=== PATIENT | male | born 2000 | race Caucasian/White ===

== ENCOUNTER 2019-04-13 12:29 | Emergency (ER) | payer OTHER ==
--- NOTE | 2019-04-13 15:34 | ER ---
Nurse's Notes [facility] Name: Juan A Beaulieu Age: 18 yrs Sex: Male : 2000 Arrival Date: 04/13/2019 Time: 12:31 Bed 20 Private MD: Diagnosis: Acute pharyngitis Presentation: 04/13 13:18 Presenting complaint: Patient states: Sore throat swollen when I woke up this morning, ca1 but I have been feeling sick for 2 days. Cough and congestion, nausea and diarrhea reported. Transition of care: patient was not received from another setting of care. Onset of symptoms was April 13, 2019. Risk Assessment: Do you want to hurt yourself or someone else? Patient reports no desire to harm self or others. Initial Sepsis Screen: Does the patient meet any 2 criteria? No. Patient's initial sepsis screen is negative. Does the patient have a suspected source of infection? No. Patient's initial sepsis screen is negative. Care prior to arrival: None. 13:18 Method Of Arrival: Ambulatory ca1 13:18 Acuity: MISSY 4 ca1 Triage Assessment: 13:20 General: Appears in no apparent distress. comfortable, Behavior is cooperative, bp appropriate for age, anxious. Pain: Complains of pain in THROAT. EENT: Reports pain when swallowing. Neuro: No deficits noted. Cardiovascular: No deficits noted. Respiratory: No deficits noted. GI: No signs and/or symptoms were reported involving the gastrointestinal system. : No signs and/or symptoms were reported regarding the genitourinary system. Derm: No deficits noted. Musculoskeletal: No deficits noted. Historical: - Allergies: 13:20 No Known Allergies; ca1 - Home Meds: 13:20 None [Active]; ca1 - PMHx: 13:20 None; ca1 - PSHx: 13:20 Appendectomy; ca1 - Immunization history:: Adult Immunizations not up to date, Flu vaccine is not up to date. - Coronavirus screen:: The patient has NOT traveled to [place] in the past 14 days. The patient has NOT had contact with known/suspected case of Coronavirus?. - Social history:: Smoking status: Patient reports the use of cigarette tobacco products, smokes one-half pack cigarettes per day. - Ebola Screening: : Patient negative for fever greater than or equal to 101.5 degrees Fahrenheit, and additional compatible Ebola Virus Disease symptoms Patient denies exposure to infectious person Patient denies travel to an Ebola-affected area in the 21 days before illness onset No symptoms or risks identified at this time. Screenin:17 Abuse screen: Denies threats or abuse. Denies injuries from another. Nutritional bp screening: No deficits noted. Tuberculosis screening: No symptoms or risk factors identified. Fall Risk None identified. Assessment: 13:20 General: SEE TRIAGE NOTE. bp 14:16 Respiratory: Airway is patent Respiratory effort is even, unlabored, Breath sounds are bp clear bilaterally. EENT: Throat is reddened bilaterally. 15:06 Reassessment: PT D/C HOME AMBULATORY, DX WITH ACUTE PHARYNGITIS. bp Vital Signs: 13:20 BP 143 / 93; Pulse 75; Resp 16 S; Temp 97.7(O); Pulse Ox 98% on R/A; Weight 145.15 kg ca1 (R); Height 6 ft. 1 in. (185.42 cm) (R); Pain 3/10; 14:16 BP 123 / 76; Pulse 86; Resp 17; Pulse Ox 97% ; bp 15:06 BP 110 / 67; Pulse 67; Resp 17; Temp 98; Pulse Ox 98% ; bp 13:20 Body Mass Index 42.22 (145.15 kg, 185.42 cm) ca1 ED Course: 12:31 Patient arrived in ED. as 12:40 Micaela Woods FNP-C [facility]. kb 12:40 Vikas Martin MD is Attending Physician. kb 13:19 Triage completed. ca1 13:20 Arm band placed on right wrist. ca1 13:22 Kimani Cabrera, TATUM is Primary Nurse. bp 14:17 Patient has correct armband on for positive identification. Bed in low position. Call bp light in reach. Side rails up X2. 15:06 No provider procedures requiring assistance completed. Patient did not have IV access bp during this emergency room visit. Administered Medications: No medications were administered Outcome: 15:00 Discharge ordered by . kb 15:06 Discharged to home ambulatory. bp 15:06 Condition: stable 15:06 Discharge instructions given to patient, Instructed on discharge instructions, follow up and referral plans. Demonstrated understanding of instructions, follow-up care. 15:08 Patient left the ED. bp Signatures: Micaela Woods FNP-C FNP-Kristan Quiroz as Kimani Cabrera, RN RN bp Elif Kent RN RN ca1 Corrections: (The following items were deleted from the chart) 14:16 14:15 General: SEE TRIAGE NOTE. bp bp
--- NOTE | 2019-04-13 15:35 | EDPHYS ---
Physician Documentation [facility] Name: Juan A Beaulieu Age: 18 yrs Sex: Male : 2000 Arrival Date: 04/13/2019 Time: 12:31 Bed 20 Private MD: ED Physician Vikas Martin HPI: 04/13 16:17 This 18 yrs old Male presents to ER via Ambulatory with complaints of Sore kb Throat. 16:17 The patient presents with sore throat. The patient describes throat pain as constant. kb Onset: The symptoms/episode began/occurred 3 day(s) ago. Severity of symptoms: At their worst the symptoms were moderate, in the emergency department the symptoms are unchanged. Modifying factors: The symptoms are alleviated by nothing, the symptoms are aggravated by nothing, Patient's oral intake status: good Denies contact with similarly ill indivduals. Associated signs and symptoms: Pertinent positives: Sore throat Pertinent negatives fever. The patient has not experienced similar symptoms in the past. The patient has not recently seen a physician. Historical: - Allergies: 13:20 No Known Allergies; ca1 - Home Meds: 13:20 None [Active]; ca1 - PMHx: 13:20 None; ca1 - PSHx: 13:20 Appendectomy; ca1 - Immunization history:: Adult Immunizations not up to date, Flu vaccine is not up to date. - Coronavirus screen:: The patient has NOT traveled to [place] in the past 14 days. The patient has NOT had contact with known/suspected case of Coronavirus?. - Social history:: Smoking status: Patient reports the use of cigarette tobacco products, smokes one-half pack cigarettes per day. - Ebola Screening: : Patient negative for fever greater than or equal to 101.5 degrees Fahrenheit, and additional compatible Ebola Virus Disease symptoms Patient denies exposure to infectious person Patient denies travel to an Ebola-affected area in the 21 days before illness onset No symptoms or risks identified at this time. ROS: 16:15 Constitutional: Negative for fever, chills, and weight loss, Neck: Negative for injury, kb pain, and swelling, Cardiovascular: Negative for chest pain, palpitations, and edema, Respiratory: Negative for shortness of breath, cough, wheezing, and pleuritic chest pain, Abdomen/GI: Negative for abdominal pain, nausea, vomiting, diarrhea, and constipation, Back: Negative for injury and pain, MS/Extremity: Negative for injury and deformity, Skin: Negative for injury, rash, and discoloration, Neuro: Negative for headache, weakness, numbness, tingling, and seizure. 16:15 ENT: Positive for sore throat. Exam: 16:15 Constitutional: This is a well developed, well nourished patient who is awake, alert, kb and in no acute distress. Head/Face: Normocephalic, atraumatic. ENT: Nares patent. No nasal discharge, no septal abnormalities noted. Tympanic membranes are normal and external auditory canals are clear. Oropharynx with no redness, swelling, or masses, exudates, or evidence of obstruction, uvula midline. Mucous membranes moist. Neck: Trachea midline, no thyromegaly or masses palpated, and no cervical lymphadenopathy. Supple, full range of motion without nuchal rigidity, or vertebral point tenderness. No Meningismus. Chest/axilla: Normal chest wall appearance and motion. Nontender with no deformity. No lesions are appreciated. Cardiovascular: Regular rate and rhythm with a normal S1 and S2. No gallops, murmurs, or rubs. Normal PMI, no JVD. No pulse deficits. Respiratory: Lungs have equal breath sounds bilaterally, clear to auscultation and percussion. No rales, rhonchi or wheezes noted. No increased work of breathing, no retractions or nasal flaring. Abdomen/GI: Soft, non-tender, with normal bowel sounds. No distension or tympany. No guarding or rebound. No evidence of tenderness throughout. Skin: Warm, dry with normal turgor. Normal color with no rashes, no lesions, and no evidence of cellulitis. MS/ Extremity: Pulses equal, no cyanosis. Neurovascular intact. Full, normal range of motion. Neuro: Awake and alert, GCS 15, oriented to person, place, time, and situation. Cranial nerves II-XII grossly intact. Motor strength 5/5 in all extremities. Sensory grossly intact. Cerebellar exam normal. Normal gait. Vital Signs: 13:20 BP 143 / 93; Pulse 75; Resp 16 S; Temp 97.7(O); Pulse Ox 98% on R/A; Weight 145.15 kg ca1 (R); Height 6 ft. 1 in. (185.42 cm) (R); Pain 3/10; 14:16 BP 123 / 76; Pulse 86; Resp 17; Pulse Ox 97% ; bp 15:06 BP 110 / 67; Pulse 67; Resp 17; Temp 98; Pulse Ox 98% ; bp 13:20 Body Mass Index 42.22 (145.15 kg, 185.42 cm) ca1 MDM: 13:22 Patient medically screened. kb 16:15 Data reviewed: vital signs, nurses notes. Data interpreted: Pulse oximetry: on room air kb is 98 %. Interpretation: normal. Counseling: I had a detailed discussion with the patient and/or guardian regarding: the historical points, exam findings, and any diagnostic results supporting the discharge/admit diagnosis, lab results, the need for outpatient follow up, a family practitioner, to return to the emergency department if symptoms worsen or persist or if there are any questions or concerns that arise at home. 04/13 13:23 Order name: Flu kb 04/13 13:23 Order name: Strep kb 04/13 14:03 Order name: Group A Streptococcus Rapid Sc; Complete Time: 14:04 EDMS 04/13 14:47 Order name: Influenza Screen (A ; Complete Time: 14:48 EDMS Administered Medications: No medications were administered Disposition: 18:57 Co-signature as Attending Physician, Vikas Martin MD I agree with the assessment and kdr plan of care. Disposition: 04/13/19 15:00 Discharged to Home. Impression: Acute pharyngitis. - Condition is Stable. - Discharge Instructions: Pharyngitis, [id number], Sore Throat, [id number]. - Medication Reconciliation Form, Thank You Letter, Antibiotic Education, Prescription Opioid Use form. - Follow up: Emergency Department; When: As needed; Reason: Worsening of condition. Follow up: Private Physician; When: 2 - 3 days; Reason: Recheck today's complaints, Continuance of care, Re-evaluation by your physician. Signatures: Dispatcher [employer] EDND Micaela Woods, SWAPNA-C Vikas Zavala MD MD kdr Peltier, Brian, RN RN bp AcElif pandey RN RN ca1 Corrections: (The following items were deleted from the chart) 15:08 15:00 04/13/2019 15:00 Discharged to Home. Impression: Acute pharyngitis. Condition is bp Stable. Forms are Medication Reconciliation Form, Thank You Letter, Antibiotic Education, Prescription Opioid Use. Follow up: Emergency Department; When: As needed; Reason: Worsening of condition. Follow up: Private Physician; When: 2 - 3 days; Reason: Recheck today's complaints, Continuance of care, Re-evaluation by your physician. kb
[2019-04-14 09:36] VITALS: BP 110/67; TEMP 98; O2SAT 98
== END 2019-04-13 15:08 | disposition home or self-care (01) ==
LOC: ER 12:29
DX: J02.9 Acute pharyngitis, unspecified (principal); F17.210 Nicotine dependence, cigarettes, uncomplicated
CPT/HCPCS: 87070; 87081; 87804; 99281

== ENCOUNTER 2020-08-16 18:03 | Emergency (ER) | payer SELFPAY ==
--- NOTE | 2020-08-16 19:31 | ER ---
Nurse's Notes [facility] Name: Juan A Beaulieu Age: 19 yrs Sex: Male : 2000 Arrival Date: 08/16/2020 Time: 18:06 Bed Waiting Private MD: Diagnosis: Allergic contact dermatitis Presentation: 08/16 18:13 Chief complaint: Patient states: Awoke with rash and itching on Wednesday. Rash to R arm ll1 and R leg. No new foods/medications. Coronavirus screen: Client denies travel out of the [place] in the last 14 days. At this time, the client does not indicate any symptoms associated with coronavirus-19. Ebola Screen: Patient denies travel to an Ebola-affected area in the 21 days before illness onset. Initial Sepsis Screen: Does the patient meet any 2 criteria? No. Patient's initial sepsis screen is negative. Does the patient have a suspected source of infection? Yes: Skin breakdown/wound. Risk Assessment: Do you want to hurt yourself or someone else? Patient reports no desire to harm self or others. Onset of symptoms was August 14, 2020. 18:13 Method Of Arrival: Ambulatory ll1 18:13 Acuity: MISSY 4 ll1 Historical: - Allergies: 18:15 No Known Allergies; ll1 - PMHx: 18:15 None; ll1 - PSHx: 18:15 Appendectomy; ll1 - Immunization history:: Client reports having NOT received the Covid vaccine. Flu vaccine is not up to date. - Social history:: Smoking status: Patient reports the use of cigarette tobacco products, smokes one pack cigarettes per day. Screenin:26 Abuse screen: Denies threats or abuse. Denies injuries from another. Nutritional ca1 screening: No deficits noted. Tuberculosis screening: No symptoms or risk factors identified. Fall Risk None identified. Assessment: 19:26 General: Appears in no apparent distress. comfortable, Behavior is calm, cooperative, ca1 appropriate for age. Pain: Denies pain. Neuro: Level of Consciousness is awake, alert, obeys commands, Oriented to person, place, time, situation. Derm: Skin is intact, is healthy with good turgor, Skin is pink, warm \T\ dry. Rash noted that is itchy, papular, red, raised, on right arm and right leg. Musculoskeletal: Circulation, motion, and sensation intact. Capillary refill < 3 seconds. Vital Signs: 18:13 Pulse 63; Resp 17; Temp 97.6; Pulse Ox 99% ; Weight 122.47 kg; Height 6 ft. 1 in. ll1 (185.42 cm); Pain 0/10; 19:25 BP 126 / 86; ca1 18:13 Body Mass Index 35.62 (122.47 kg, 185.42 cm) ll1 ED Course: 18:06 Patient arrived in ED. bp1 18:15 Triage completed. ll1 18:15 Arm band placed on. ll1 19:25 Elif Kent, RN is Primary Nurse. ca1 19:26 Patient has correct armband on for positive identification. ca1 19:27 Herve Toro PA is PHCP. jr8 19:27 Yanick Pandya MD is Attending Physician. jr8 19:27 No provider procedures requiring assistance completed. Patient did not have IV access ca1 during this emergency room visit. Administered Medications: 19:29 Drug: predniSONE 60 mg Route: PO; ca1 Outcome: 19:30 Discharge ordered by . jr8 19:35 Discharged to home ambulatory. ca1 19:35 Discharge instructions given to patient, Instructed on discharge instructions, follow up and referral plans. medication usage, Demonstrated understanding of instructions, follow-up care, medications, Prescriptions given X 1. 19:35 Condition: stable ca1 19:35 Patient left the ED. ca1 Signatures: Herve Toro PA PA jrElif Gonzales RN RN ca1 Jesse Osullivan RN RN ll1 Nereyda Rondon bp1
--- NOTE | 2020-08-16 19:31 | EDPHYS ---
Physician Documentation [facility] Name: Juan A Beaulieu Age: 19 yrs Sex: Male : 2000 Arrival Date: 08/16/2020 Time: 18:06 Bed Waiting Private MD: ED Physician Yanick Pandya HPI: 08/16 19:28 This 19 yrs old Male presents to ER via Ambulatory with complaints of Rash. jr8 19:28 The patient's rash thought to be caused by Dermatitis. The rash is located on the right jr8 arm and right leg. The rash can be described as erythematous, papular, raised. Onset: The symptoms/episode began/occurred acutely. Associated signs and symptoms: Pertinent positives: itching. Severity of symptoms: At their worst the symptoms were moderate in the emergency department the symptoms are unchanged. The patient has not experienced similar symptoms in the past. The patient has not recently seen a physician. Stated that [place] in [place] but did not recall brushing up on anything. Woke up with rash to right inner forearm and leg. Historical: - Allergies: 18:15 No Known Allergies; ll1 - PMHx: 18:15 None; ll1 - PSHx: 18:15 Appendectomy; ll1 - Immunization history:: Client reports having NOT received the Covid vaccine. Flu vaccine is not up to date. - Social history:: Smoking status: Patient reports the use of cigarette tobacco products, smokes one pack cigarettes per day. ROS: 19:28 Eyes: Negative for injury, pain, redness, and discharge, ENT: Negative for injury, jr8 pain, and discharge, Neck: Negative for injury, pain, and swelling, Cardiovascular: Negative for chest pain, palpitations, and edema, Respiratory: Negative for shortness of breath, cough, wheezing, and pleuritic chest pain, Abdomen/GI: Negative for abdominal pain, nausea, vomiting, diarrhea, and constipation, Back: Negative for injury and pain, MS/Extremity: Negative for injury and deformity, Neuro: Negative for headache, weakness, numbness, tingling, and seizure. 19:28 Skin: Positive for rash. Exam: 19:28 Constitutional: This is a well developed, well nourished patient who is awake, alert, jr8 and in no acute distress. Cardiovascular: Regular rate and rhythm with a normal S1 and S2. No gallops, murmurs, or rubs. Normal PMI, no JVD. No pulse deficits. Respiratory: Lungs have equal breath sounds bilaterally, clear to auscultation and percussion. No rales, rhonchi or wheezes noted. No increased work of breathing, no retractions or nasal flaring. MS/ Extremity: Pulses equal, no cyanosis. Neurovascular intact. Full, normal range of motion. Neuro: Awake and alert, GCS 15, oriented to person, place, time, and situation. Cranial nerves II-XII grossly intact. Motor strength 5/5 in all extremities. Sensory grossly intact. Cerebellar exam normal. Normal gait. 19:28 Skin: rash a moderate rash is noted, rash can be described as erythematous, papular, contact dermatitis, on the right arm and right leg. Vital Signs: 18:13 Pulse 63; Resp 17; Temp 97.6; Pulse Ox 99% ; Weight 122.47 kg; Height 6 ft. 1 in. ll1 (185.42 cm); Pain 0/10; 19:25 BP 126 / 86; ca1 18:13 Body Mass Index 35.62 (122.47 kg, 185.42 cm) ll1 MDM: 19:28 Patient medically screened. jr8 19:28 Data reviewed: vital signs, nurses notes, and as a result, I will discharge patient. jr8 Data interpreted: Pulse oximetry: on room air is 99 %. Interpretation: normal. Counseling: I had a detailed discussion with the patient and/or guardian regarding: the historical points, exam findings, and any diagnostic results supporting the discharge/admit diagnosis, the need for outpatient follow up, a family practitioner, to return to the emergency department if symptoms worsen or persist or if there are any questions or concerns that arise at home. Administered Medications: 19:29 Drug: predniSONE 60 mg Route: PO; ca1 Disposition: 08/17 06:36 Co-signature as Attending Physician, Yanick Pandya MD. mh7 Disposition: 08/16/20 19:30 Discharged to Home. Impression: Allergic contact dermatitis. - Condition is Stable. - Discharge Instructions: Contact Dermatitis. - Prescriptions for Prednisone 20 mg Oral Tablet - take 3 tablets by ORAL route once daily for 3 days then two tabs once daily for 3 days then one tab daily for 4 days; 19 tablet. - Medication Reconciliation Form, Thank You Letter, Antibiotic Education, Prescription Opioid Use form. - Follow up: Private Physician; When: 5 - 6 days; Reason: Recheck today's complaints, Continuance of care, Re-evaluation by your physician. - Problem is new. - Symptoms are unchanged. Signatures: Herve Toro PA PA jr8 Elif Kent RN RN ca1 Jesse Osullivan RN RN ll1 Yanick Pandya MD MD [email or web address] Corrections: (The following items were deleted from the chart) 08/16 19:35 19:30 08/16/2020 19:30 Discharged to Home. Impression: Allergic contact dermatitis. ca1 Condition is Stable. Forms are Medication Reconciliation Form, Thank You Letter, Antibiotic Education, Prescription Opioid Use. Follow up: Private Physician; When: 5 - 6 days; Reason: Recheck today's complaints, Continuance of care, Re-evaluation by your physician. Problem is new. Symptoms are unchanged. jr8
[2020-08-16] MEDS ORDERED: predniSONE 20 MG TAB ONE (19:49)
[2020-08-16 19:52] VITALS: TEMP 97.6; O2SAT 99
[2020-08-16 19:53] VITALS: BP 126/86
== END 2020-08-16 19:35 | disposition home or self-care (01) ==
LOC: ER 18:03
DX: L23.9 Allergic contact dermatitis, unspecified cause (principal); F17.210 Nicotine dependence, cigarettes, uncomplicated
CPT/HCPCS: J7512

== ENCOUNTER 2022-07-29 18:01 | Emergency (ER) | payer OTHER ==
[2022-07-29 21:41] LABS: Protime INR 1.13
[2022-07-29 21:46] LABS: Absolute Lymphocytes (CBC) 3.5 K/uL (0.7-4.9); Hematocrit 40.8 % (39.6-49.0); Lymphocytes % 28.7 % (15.3-44.8); MPV 7.5 fL (7.6-11.3); RBC Red Blood Cell Count 4.49 M/uL (4.33-5.43)
--- NOTE | 2022-07-29 21:54 | RAD REPORT ---
[facility] DES[facility]11 pm CLINICAL HISTORY: syncope COMPARISON: CHEST SINGLE VIEW dated 05/29/2009 TECHNIQUE: Portable AP view of the chest. FINDINGS: The lungs are clear. No pneumothorax or effusion. The cardiomediastinal contours are unre markable. IMPRESSION: No acute cardiopulmonary process.
--- NOTE | 2022-07-29 22:13 | RAD REPORT ---
EXAM DESCRIPTION: CT - Head Brain Wo Cont - 07/29/2022 8:51 pm CLINICAL HISTORY: Dizziness;Syncope COMPARISON: No comparisons TECHNIQUE: Noncontrast head CT images ad were obtained without IV contrast. Multiplanar reformats we re generated and reviewed. All CT scans are performed using dose optimization technique as appropriate and may include automated exposure control or mA/KV adjustment according to patient size. FINDINGS: No intracranial hemorrhage, mass, or edema. Changes of empty sella noted, nonspecific. Normal ventricular caliber for age. Jama-white matter differentiation is preserved, without evidence of acute infarct. No abnormal extra- axial fluid collections. Mastoid air cells and visualized portions of the paranasal sinuses are clear. No acute bony findings. IMPRESSION: No evidence of an acute intracranial process. Changes of empty sella are noted, nonspecific. This could relate to longstanding increase of intracra nial pressure in the appropriate clinical setting. Ventricular size is however normal.
[2022-07-29 22:29] LABS: Magnesium 2.1 mg/dL (1.6-2.4); Potassium 3.1 mEq/L (3.5-5.1); Troponin High Sensitivity 6.8 pg/mL (<58.9)
[2022-07-29] MEDS ORDERED: NA CHLORIDE 0.9% 1,000 ML ONE (22:34)
[2022-07-29] MEDS ORDERED: POTASSIUM 25 MEQ EFFERV TAB ONE (22:55)
--- NOTE | 2022-07-29 23:05 | EDPHYS ---
Physician Documentation [facility] Name: Juan A Beaulieu Age: 21 yrs Sex: Male : 2000 Arrival Date: 07/29/2022 Time: 18:01 Bed 2 Private MD: ED Physician Paul Schultz HPI: 07/29 18:20 This 21 yrs old Male presents to ER via EMS with complaints of Syncope. cp 18:20 The patient has experienced syncope, lost consciousness. cp 18:20 Onset: The symptoms/episode began/occurred today. cp 18:20 Duration: This was a single episode. cp Historical: - Allergies: 18:04 No Known Allergies; iw - Home Meds: 18:04 None [Active]; iw - PMHx: 18:04 None; iw - Immunization history:: Adult Immunizations up to date. - Social history:: Smoking status: Patient reports the use of cigarette tobacco products, smokes one pack cigarettes per day. ROS: 18:25 Constitutional: Negative for body aches, chills, fever, poor PO intake. cp 18:25 Eyes: Negative for injury, pain, redness, and discharge. cp Exam: 20:40 ECG was reviewed by the Attending Physician. cp 20:44 Constitutional: The patient appears in no acute distress, alert, awake, cp non-diaphoretic, non-toxic, well developed, well nourished. 20:44 Head/Face: Normocephalic, atraumatic. cp 20:44 Eyes: Periorbital structures: appear normal, Pupils: equal, round, and reactive to light and accomodation, Extraocular movements: intact throughout, Conjunctiva: normal, no exudate, no injection, Lids and lashes: appear normal, bilaterally. 20:44 ENT: External ear(s): are unremarkable, Nose: is normal, Mouth: Lips: moist, Oral mucosa: pink and intact, moist. 20:44 Chest/axilla: Inspection: normal. 20:44 Cardiovascular: Rate: normal, Rhythm: regular. 20:44 Respiratory: the patient does not display signs of respiratory distress, Respirations: normal, no use of accessory muscles, labored breathing, is not present, Breath sounds: are clear throughout, no decreased breath sounds, no stridor, no wheezing. 20:44 Abdomen/GI: Inspection: abdomen appears normal, Palpation: abdomen is soft and non-tender, in all quadrants. 20:44 Neuro: Orientation: to person, place \T\ time. Mentation: is normal, Cerebellar function: is grossly normal, Motor: moves all fours, strength is normal, Sensation: is normal. Vital Signs: 18:05 Pulse Ox 100% ; iw 18:15 BP 123 / 81; Pulse 72; Resp 17; Temp 98.4(O); Weight 97.98 kg; Height 6 ft. 2 in. ; mb9 Pain 8/10; 20:38 BP 136 / 97; Pulse 63; Resp 19; Pulse Ox 100% on R/A; aa9 21:43 BP 128 / 86 Supine; Pulse 85; Resp 18; Pulse Ox 98% on R/A; rv 21:59 BP 138 / 89 Sitting; Pulse 66; Resp 16; Pulse Ox 99% on R/A; rv 21:59 BP 141 / 89 Standing; Pulse 89; Resp 18; Pulse Ox 99% on R/A; rv 23:00 BP 131 / 84; Pulse 70; Resp 17 S; Pulse Ox 99% on R/A; aa9 23:10 Temp 98.6(O); aa9 18:15 Body Mass Index 27.73 (97.98 kg, 187.96 cm) mb9 18:15 Pain Scale: Adult mb9 MDM: 18:17 Patient medically screened. 23:04 Data reviewed: vital signs, nurses notes, lab test result(s), EKG, radiologic studies. cp 23:04 Consideration of Admission/Observation Escalation of care including cp admission/observation considered. 07/29 18:19 Order name: Basic Metabolic Panel; Complete Time: 22:43 07/29 22:43 Interpretation: Normal except: K 3.1; CL 109. 07/29 18:19 Order name: CBC with Diff; Complete Time: 22:05 07/29 22:06 Interpretation: Normal except: WBC 12.10; MPV 7.5; EOSINOPHIL % 4.5. 07/29 18:19 Order name: Magnesium; Complete Time: 22:43 07/29 18:19 Order name: PT-INR; Complete Time: 22:05 07/29 22:06 Interpretation: Reviewed. 07/29 18:19 Order name: Troponin HS; Complete Time: 22:43 07/29 22:43 Interpretation: Reviewed. cp 07/29 22:11 Order name: Creatine Phosphokinase; Complete Time: 22:43 EDMS 07/29 18:19 Order name: XRAY Chest (1 view); Complete Time: 22:05 cp 07/29 22:06 Interpretation: Report reviewed. cp 07/29 20:03 Order name: CT Head Brain wo Cont; Complete Time: 22:16 cp 07/29 22:16 Interpretation: Report reviewed. cp 07/29 18:19 Order name: EKG; Complete Time: 18:20 cp 07/29 18:17 Order name: Orthostatics; Complete Time: 22:03 cp 07/29 18:19 Order name: Cardiac monitoring; Complete Time: 20:38 cp 07/29 18:19 Order name: EKG - Nurse/Tech; Complete Time: 20:38 cp 07/29 18:19 Order name: IV Saline Lock; Complete Time: 20:38 cp 07/29 18:19 Order name: Labs collected and sent; Complete Time: 21:06 cp 07/29 18:19 Order name: O2 Per Protocol; Complete Time: 20:38 cp 07/29 18:19 Order name: O2 Sat Monitoring; Complete Time: 20:38 cp EC:40 Rate is 61 beats/min. Rhythm is regular. TX interval is normal. QRS interval is normal. cp QT interval is normal. T waves are Inverted in lead aVR. Interpreted by me. Reviewed by me. Administered Medications: 22:27 Drug: NS 0.9% IV 1000 ml Route: IV; Rate: 1 bolus; Site: right antecubital; rv 23:15 Follow up: IV Status: Completed infusion; IV Intake: 1000ml rv 22:49 Drug: Potassium PO Effervescent Tablet 50 mEq Route: PO; rv 23:15 Follow up: Response: No adverse reaction rv Point of Care Testing: Blood Glucose: 18:05 Blood Glucose: 98 mg/dL; iw Ranges: Critical Glucose Levels:Adult <50 mg/dl or >400 mg/dl <40 mg/dl or >180 mg/dl Disposition Summary: 07/29/22 23:04 Discharge Ordered Location: Home cp Problem: new cp Symptoms: have improved cp Condition: Stable cp Diagnosis - Heat syncope cp - Hypokalemia cp Followup: cp - With: Private Physician - When: 2 - 3 days - Reason: Recheck today's complaints Discharge Instructions: - Discharge Summary Sheet cp - Potassium Content of Foods cp - Syncope cp - Heat Exhaustion cp - Hypokalemia cp Forms: - Medication Reconciliation Form cp - Thank You Letter cp - Antibiotic Education cp - Prescription Opioid Use cp Signatures: Dispatcher [employer] EDSharon Mcintyre RN RN iw Page, Corey, PA PA cp Mino Marte RN RN rv Corrections: (The following items were deleted from the chart) 22:11 22:06 CREATINE PHOSPHOKINASE+C.LAB.BRZ ordered. EDMS EDMS
--- NOTE | 2022-07-29 23:05 | ER ---
Nurse's Notes [facility] Name: Juan A Beaulieu Age: 21 yrs Sex: Male : 2000 Arrival Date: 07/29/2022 Time: 18:01 Bed 2 Private MD: Diagnosis: Heat syncope;Hypokalemia Presentation: 07/29 18:03 Chief complaint: EMS states: pt does not remember what happened but he think she iw fainted, he is homeless and has been walking around , not drinking water, he is dizzy. Coronavirus screen: At this time, the client does not indicate any symptoms associated with coronavirus-19. Ebola Screen: Patient negative for fever greater than or equal to 101.5 degrees Fahrenheit, and additional compatible Ebola Virus Disease symptoms Patient denies exposure to infectious person. Patient denies travel to an Ebola-affected area in the 21 days before illness onset. No symptoms or risks identified at this time. Initial Sepsis Screen: Does the patient meet any 2 criteria? No. Patient's initial sepsis screen is negative. Does the patient have a suspected source of infection? No. Patient's initial sepsis screen is negative. Risk Assessment: Do you want to hurt yourself or someone else? Patient reports no desire to harm self or others. Onset of symptoms was July 29, 2022. 18:03 Method Of Arrival: EMS: [facility] iw 18:03 Acuity: MISSY 3 iw 18:05 Care prior to arrival: IV initiated. 20 GA, in the right antecubital area. iw Triage Assessment: 22:06 General: Appears in no apparent distress. Neuro: Reports a syncopal episode. rv Historical: - Allergies: 18:04 No Known Allergies; iw - Home Meds: 18:04 None [Active]; iw - PMHx: 18:04 None; iw - Immunization history:: Adult Immunizations up to date. - Social history:: Smoking status: Patient reports the use of cigarette tobacco products, smokes one pack cigarettes per day. Screenin:06 [facility] ED Fall Risk Assessment (Adult) History of falling in the last 3 months, rv including since admission No falls in past 3 months (0 pts). Abuse screen: Denies threats or abuse. Denies injuries from another. Nutritional screening: No deficits noted. Tuberculosis screening: No symptoms or risk factors identified. Assessment: 20:29 Pain: Denies pain. Neuro: Level of Consciousness is awake, alert, obeys commands, aa9 Oriented to person, place, time, situation. 20:39 Cardiovascular: Rhythm is regular. aa9 20:39 General: Appears in no apparent distress. uncomfortable, unkempt, Behavior is aa9 cooperative, anxious. Respiratory: Airway is patent Trachea midline Respiratory effort is even, unlabored. GI: No signs and/or symptoms were reported involving the gastrointestinal system. : No signs and/or symptoms were reported regarding the genitourinary system. Derm: Skin is intact, is healthy with good turgor. 22:07 Reassessment: Patient appears in no apparent distress at this time. Patient and/or rv family updated on plan of care and expected duration. Pain level reassessed. Patient is alert, oriented x 3, equal unlabored respirations, skin warm/dry/pink. Vital Signs: 18:05 Pulse Ox 100% ; iw 18:15 BP 123 / 81; Pulse 72; Resp 17; Temp 98.4(O); Weight 97.98 kg; Height 6 ft. 2 in. ; mb9 Pain 8/10; 20:38 BP 136 / 97; Pulse 63; Resp 19; Pulse Ox 100% on R/A; aa9 21:43 BP 128 / 86 Supine; Pulse 85; Resp 18; Pulse Ox 98% on R/A; rv 21:59 BP 138 / 89 Sitting; Pulse 66; Resp 16; Pulse Ox 99% on R/A; rv 21:59 BP 141 / 89 Standing; Pulse 89; Resp 18; Pulse Ox 99% on R/A; rv 23:00 BP 131 / 84; Pulse 70; Resp 17 S; Pulse Ox 99% on R/A; aa9 23:10 Temp 98.6(O); aa9 18:15 Body Mass Index 27.73 (97.98 kg, 187.96 cm) mb9 18:15 Pain Scale: Adult mb9 ED Course: 18:03 Patient arrived in ED. iw 18:04 Triage completed. iw 18:15 Arm band placed on. mb9 18:17 Paul Schultz MD is Attending Physician. bs3 18:17 Vadim Sandhu PA is PHCP. cp 20:06 Abby Schaffer, TATUM is Primary Nurse. aa9 20:12 XRAY Chest (1 view) In Process Unspecified. EDMS 20:28 Missed attempt(s): 20 gauge in left antecubital area. Bleeding controlled, band aid aa9 applied, catheter tip intact. Maintain EMS IV. Dressing intact. Good blood return noted. Site clean \T\ dry. Gauge \T\ site: 20 G R AC. 20:39 Patient has correct armband on for positive identification. Placed in gown. Bed in low aa9 position. Call light in reach. Side rails up X2. Client placed on continuous cardiac and pulse oximetry monitoring. NIBP monitoring applied. 20:52 CT Head Brain wo Cont In Process Unspecified. EDMS 21:06 Initial lab(s) drawn, by me, sent to lab. rv 21:50 Inserted saline lock: 20 gauge in right antecubital area, using aseptic technique. rv Blood collected. 22:07 No provider procedures requiring assistance completed. rv 23:15 IV discontinued, intact, bleeding controlled, No redness/swelling at site. Pressure rv dressing applied. Administered Medications: 22:27 Drug: NS 0.9% IV 1000 ml Route: IV; Rate: 1 bolus; Site: right antecubital; rv 23:15 Follow up: IV Status: Completed infusion; IV Intake: 1000ml rv 22:49 Drug: Potassium PO Effervescent Tablet 50 mEq Route: PO; rv 23:15 Follow up: Response: No adverse reaction rv Medication: 22:06 VIS not applicable for this client. rv Point of Care Testing: Blood Glucose: 18:05 Blood Glucose: 98 mg/dL; iw Ranges: Intake: 23:15 IV: 1000ml; Total: 1000ml. rv Outcome: 23:04 Discharge ordered by . cp 23:15 Discharged to home ambulatory. rv 23:15 Condition: good 23:15 Discharge instructions given to patient, Instructed on discharge instructions, follow up and referral plans. Demonstrated understanding of instructions, follow-up care. 23:15 Patient left the ED. rv Signatures: Dispatcher [employer] EDSharon Mcintyre RN RN iw Vadim Sandhu PA PA cp Vicente, Ronaldo, RN RN rv Abby Schaffer RN RN aa9 Paul Schultz MD MD bs3 Ana Luisa Thompson RN RN mb9 Corrections: (The following items were deleted from the chart) 20:39 20:29 Neuro: Level of Consciousness is awake, alert, obeys commands, Oriented to aa9 person, place, time, situation, aa9 22:02 21:59 BP 138 / 89; Pulse 66bpm; Resp 16bpm; Pulse Ox 99% RA; rv rv 23:10 22:00 BP 131 / 84; Pulse 70bpm; Resp 17bpm; Spontaneous; Pulse Ox 99% RA; aa9 aa9
[2022-07-30 00:32] VITALS: O2SAT 99
[2022-07-30 00:33] VITALS: BP 131/84
[2022-07-30 00:34] VITALS: TEMP 98.6
--- NOTE | 2022-07-30 12:08 | EKG ---
Test Date: 2022-07-29 Test Time: 20:34:01 Field Nurse Case Manager: CHAYITO MEASUREMENT RESULTS: Intervals: Rate: 61 DC: 134 QRSD: 86 QT: 398 QTc: 400 [place]: P: 19 DC: 134 QRS: 83 T: 71 INTERPRETIVE STATEMENTS: Normal sinus rhythm with sinus arrhythmia Normal ECG Compared to ECG 02/11/2009 10:02:41 No significant changes Electronically Signed On 07-30-22 12:05:56 CDT by Collin Elizalde
== END 2022-07-29 23:15 | disposition home or self-care (01) ==
LOC: ER 18:01
DX: E87.6 Hypokalemia (principal); T67.1XXA Heat syncope, initial encounter; F17.210 Nicotine dependence, cigarettes, uncomplicated
CPT/HCPCS: 93005; 85025; 80048; 36415; 83735; 82550; 85610; 84484; 70450; 71045; 96360; 99285; J7030